=== PATIENT | female | born 1960 | race Caucasian/White ===

== ENCOUNTER 2017-02-01 12:07 | Emergency (ER) | payer OTHER ==
[~2017-02-01 12:07] MED LIST: IBUP-1027 PO; SCOP1PAT TD
[2017-02-01 13:06] VITALS: BP 136/82
--- NOTE | 2017-02-01 14:22 | PHYS DOC ---
Past Medical History Past Medical History: GERD, High Cholesterol, Hypertension Additional Past Medical Histor: GASTROPARESIS, Past Surgical History: Appendectomy, Hysterectomy, Tonsillectomy Additional Past Surgical Histo: G-TUBE,HERNIA Alcohol Use: None Drug Use: None Adult General Chief Complaint Chief Complaint: GI PROBLEM HPI HPI Patient is a 56 year old female who presents with complaint of loss of G-tube. Patient states that her G-tube came out at approximately 11:00 this morning. Patient states that she had her G-tube placed proximate 6 months ago for treatment of gastroparesis. Patient states that she is currently on oral intake and is not having any abdominal pain or nausea. Patient states that she was scheduled to have the tube replaced in 2 days prior to her tube coming out spontaneously. The patient came to the emergency department for evaluation and to see if the G-tube could be replaced. Review of Systems Review of Systems Constitutional: Denies fever or chills [] Eyes: Denies change in visual acuity, redness, or eye pain [] HENT: Denies nasal congestion or sore throat [] Respiratory: Denies cough or shortness of breath [] Cardiovascular: No additional information not addressed in HPI [] GI: Loss of G-tube, Denies abdominal pain, nausea, vomiting, bloody stools or diarrhea [] : Denies dysuria or hematuria [] Musculoskeletal: Denies back pain or joint pain [] Integument: Denies rash or skin lesions [] Neurologic: Denies headache, focal weakness or sensory changes [] Allergies Allergies Allergies Coded Allergies Type Severity Reaction Last Updated Verified benzocaine Allergy Severe Anaphylaxis 06/19/16 Yes morphine Allergy Severe AGGITATION 02/01/17 Yes Sulfa (Sulfonamide Antibiotics) Allergy Intermediate Rash 06/19/16 Yes butorphanol Adverse Reaction Mild Nausea and Vomiting 06/19/16 Yes naproxen Adverse Reaction Mild Anxiety 06/19/16 Yes Physical Exam Physical Exam Constitutional: Well developed, well nourished, no acute distress, non-toxic appearance. [] HENT: Normocephalic, atraumatic, bilateral external ears normal, oropharynx moist, no oral exudates, nose normal. [] Eyes: PERRLA, EOMI, conjunctiva normal, no discharge. [] Neck: Normal range of motion, no tenderness, supple, no stridor. [] Cardiovascular:Heart rate regular rhythm, no murmur [] Lungs & Thorax: Bilateral breath sounds clear to auscultation [] Abdomen: Left upper quadrant gastrostomy, Bowel sounds normal, soft, no tenderness, no masses, no pulsatile masses. [] Skin: Warm, dry, no erythema, no rash. [] Back: No tenderness, no CVA tenderness. [] Extremities: No tenderness, no cyanosis, no clubbing, ROM intact, no edema. [] Neurologic: Alert and oriented X 3, normal motor function, normal sensory function, no focal deficits noted. [] Current Patient Data Vital Signs Vital Signs Date Time Temp Pulse Resp B/P Pulse Ox O2 Delivery O2 Flow Rate FiO2 02/01/17 13:06 98.3 75 18 136/82 97 Room Air 98.3 EKG EKG Not performed [] Radiology/Procedures Radiology/Procedures Not performed [] Course & Med Decision Making Course & Med Decision Making Pertinent Labs and Imaging studies reviewed. (See chart for details) Placement of gastrostomy tube was attempted as outlined in the procedure note without successful replacement. The patient is not G-tube dependent for feeding. The patient is scheduled to have G-tube replacement in 2 days. I spoke with patient's model technician, Dr. Dela Cruz, and patient's general surgeon, Dr. Luna, who both agreed that the patient would be discharged home on clear liquid diet and have her G-tube replaced in 2 days as scheduled. Advised patient to return emergency department for any worsening symptoms. Patient voiced understanding and in agreement with treatment plan. Dragon Disclaimer Dragon Disclaimer This electronic medical record was generated, in whole or in part, using a voice recognition dictation system. Gastrostomy Tube Replacement Indication: Loss of previous G-tube Procedure: The patient was placed in the supine position and the patient's gastric tube was attempted to be replaced. The stoma tract cause significant resistance insertion of a 20 Scottish G-tube. After multiple attempts placement was aborted. The stoma site was dressed with clean gauze. The patient tolerated the procedure without difficulty. Complications: Unsuccessful placement of G-tube. Departure Departure Impression: Primary Impression: PEG tube malfunction Disposition: HOME, SELF-CARE Condition: STABLE Referrals: JAYNE WILSON (PCP) Additional Instructions: We were unable to replace your G-tube at your visit today. I have consult at your model technician, Dr. Dela Cruz, and her general surgeon, Dr. Luna, who both agree that at this time we cover the stoma site with gauze and follow-up in 2 days with your previously scheduled G-tube placement procedure. Continue with a liquid diet at this time. Return to the emergency department for any worsening symptoms including pain, or the development of fever, vomiting, or any other worrisome symptoms. LEXX SOARES MD Feb 01, 2017 14:22
== END 2017-02-01 14:27 | disposition home or self-care (01) ==
LOC: ER 12:07
DX: K94.29 Other complications of gastrostomy (principal); E78.00 Pure hypercholesterolemia, unspecified; I10 Essential (primary) hypertension; K21.9 Gastro-esophageal reflux disease without esophagitis; Z90.710 Acquired absence of both cervix and uterus; Z88.2 Allergy status to sulfonamides; Z88.5 Allergy status to narcotic agent; Z88.8 Allergy status to other drugs, medicaments and biological substances
CPT/HCPCS: 43760; 99284-25

== ENCOUNTER 2017-02-03 09:05 | Outpatient (CLI) | payer OTHER ==
[~2017-02-03] VITALS: Ht 157.5 cm; Wt 53.5 kg
[~2017-02-03 09:05] MED LIST changes: -IV RINGERS,LACTATED 1000ML 1,000 ML IV SCH
[2017-02-03 09:24] LABS: BASO # 0.1 x10^3/uL (0.0-0.2); BASO % 1 % (0-3); EOS % 4 % (0-3); HEMATOCRIT 47.8 % (36.0-47.0); HEMOGLOBIN 15.7 g/dL (12.0-15.5); LYMPH # 2.9 x10^3/uL (1.0-4.8); LYMPH % 30 % (24-48); MEAN CORPUSCULAR HEMOGLOBIN 31 pg (25-35); MEAN CORPUSCULAR HGB CONC 33 g/dL (31-37); MEAN CORPUSCULAR VOLUME 94 fL (79-100); MONO % 8 % (0-9); NEUT % 57 % (31-73); PLATELET COUNT 262 x10^3/uL (140-400); RED CELL DISTRIBUTION WIDTH 13.6 % (11.5-14.5); WHITE BLOOD COUNT 9.7 x10^3/uL (4.0-11.0)
[2017-02-03 09:27] LABS: INR 0.9 (0.8-1.1); PROTHROMBIN TIME PATIENT 11.7 SEC (11.7-14.0)
[2017-02-03 09:35] LABS: CALCIUM 9.3 mg/dL (8.5-10.1); CREATININE 0.8 mg/dL (0.6-1.0); GFR 73.9; POTASSIUM 4.2 mmol/L (3.5-5.1)
[2017-02-03] MEDS ORDERED: PROPOFOL 20 ML IV ONE (09:56)
[2017-02-03] MEDS ORDERED: MIDAZOLAM HCL 2 MG/2 ML VIAL. ONE (09:56)
[2017-02-03] MEDS ORDERED: LIDOCAINE 2% 100 MG/5 ML DISP.SYRIN. ONE (09:56)
[2017-02-03 10:42] VITALS: BP 132/81
[2017-02-03] MEDS ORDERED: IOHEXOL 300 MG/ML 50 ML VIAL. ONE (10:51)
[2017-02-03] MEDS ORDERED: LIDOCAINE 1% / SOD BICARB 8.4% 20 ML VIAL. IJ ONE (10:51)
[2017-02-03] MEDS ORDERED: IOHEXOL 300 MG/ML 50 ML VIAL. INT CAT ONE (11:35)
[2017-02-03 12:38] VITALS: BP 136/67
--- NOTE | 2017-02-03 16:01 | RAD ---
Fluoroscopy guided replacement of gastrostomy tube Indication: 56-year-old female with gastroparesis. Her indwelling gastrostomy tube was inadvertently pulled out. Fluoroscopy guided G-tube replacement has been requested by general surgery. Fluoroscopy time: 2.5 minutes. 2 fluoroscopic spot images were obtained. Kerma-area Product: 5 Gycm2 Contrast material: 20 cc Omnipaque 300 Anesthesia: Mac anesthesia was provided by the department of anesthesiology. Sterility: All elements of maximal sterile barrier technique were utilized, including cap, mask, sterile gown, sterile gloves, large sterile sheet, appropriate hand hygiene, and 2% chlorhexidine for cutaneous antisepsis. Procedure: Informed consent was obtained from the patient. She was placed supine on the angiography table. Using aseptic technique and fluoroscopic guidance, a small 5 Argentine dilator was successfully advanced over a Glidewire through the patient's pre-existing gastrostomy tube tract into gastric lumen. Satisfactory intraluminal position of the dilator was confirmed with a contrast injection and a fluoroscopic spot image. The dilator was then removed over an Amplatz wire. A 20 Argentine ALVA gastrostomy tube was then successfully advanced over the Amplatz wire into gastric lumen. Satisfactory intraluminal position of the G-tube was confirmed with contrast injection and a fluoroscopic spot image. The retention balloon was inflated with 7 cc of sterile water. A sterile dressing was applied. Impression: Successful, uneventful fluoroscopy guided gastrostomy tube replacement, as described.
== END 2017-02-03 12:53 | disposition home or self-care (01) ==
LOC: INTRAD 09:05
PROVIDERS: ATTEND Surgery
DX: Z43.1 Encounter for attention to gastrostomy (principal); J44.9 Chronic obstructive pulmonary disease, unspecified; I10 Essential (primary) hypertension; K21.9 Gastro-esophageal reflux disease without esophagitis; F41.9 Anxiety disorder, unspecified; F32.9 Major depressive disorder, single episode, unspecified; Z72.89 Other problems related to lifestyle; Z90.710 Acquired absence of both cervix and uterus; Z79.01 Long term (current) use of anticoagulants
CPT/HCPCS: 36415; 49450; 80048; 85027; 85610; C1769; C1894; J2250; J2704; Q9967

== ENCOUNTER → 2017-02-03 | Day surgery (SDC) | payer MEDICAID ==
[2017-02-01 13:06] VITALS: BP 136/82
[~2017-02-03] MED LIST changes: +IV RINGERS,LACTATED 1000ML 1,000 ML IV SCH
--- NOTE | 2017-02-03 11:52 | PDOC1 ---
History and Physical Date of Procedure Date of Admission 02/03/17 Procedure Procedure Fluoro guided G-tube replacement Indication Indication 56 YO female with gastroparesis---G tube inadvertently pulled out Past Medical History Past Medical History See Nursing Pre Procedure PMH Past Surgical History Past Surgical History See Nursing Pre procedure PSH Current Medications Current Medications Current Medications Lactated Ringer's (Iv Lactated Ringers) 1,000 ml @ 50 mls/hr Q20H IV ; Start at 13:00; Stop 02/03/17 at 09:12; Status DC Active Scripts Active Transderm-Scop (Scopolamine) 1 Each Patch.td72 1 Patch TD Q3DAYS Allergies Allergies: Coded Allergies: benzocaine (Verified Allergy, Severe, Anaphylaxis, 06/19/16) Per pt maggie/derivities cause throat swelling happened when pt had surgery with difficulty removing tube, said it is something in anesthesia. morphine (Verified Allergy, Severe, AGGITATION, 02/01/17) Sulfa (Sulfonamide Antibiotics) (Verified Allergy, Intermediate, Rash, ) butorphanol (Verified Adverse Reaction, Mild, Nausea and Vomiting, 06/19/16 ) "Violent vomitting" per pt. naproxen (Verified Adverse Reaction, Mild, Anxiety, 06/19/16) "Jittery" per pt. Physical Exam Lungs: Clear to auscultation Heart: Regular rate Psych/Mental Status: Mental status NL Assessment Assessment 56 YO female with gastroparesis---G-tube inadvertently pulled out Problems: Plan Plan Fluoro guided G-tube replacement UNA JARA MD Feb 03, 2017 11:52
--- NOTE | 2017-02-03 11:55 | PDOC ---
Exam Audio Visual Project Manager Audio Visual Project Manager Constantino [employer] Manager [employer] Manager F Ndumbu Pre-Procedure Diagnosis Pre-Procedure Diagnosis 56 YO female with gastroparesis---G-tube inadvertently pulled out Post-Procedure Diagnosis Post-Procedure Diagnosis Same Procedure Performed Procedure Performed Fluoro guided G-tube replacement Type of Anesthesia Type of Anesthesia MAC by anesthesia Estimated Blood Loss EBL: Trace Drain/Tubes Drains/Tubes 20F ALVA G-tube successfully inserted thru pre-existing tract Condition of Patient Condition of Patient Stable. No apparent complication. Disposition Disposition From IR to PACU, then discharge post recovery, if no problems. F/u with Dr Luna. OK to use G-tube. Full report to follow. UNA JARA MD Feb 03, 2017 11:55
== END | disposition home or self-care (01) ==
LOC: SURG 08:23
PROVIDERS: ATTEND Radiology Vascular & Interventional Radiology
DX: K94.23 Gastrostomy malfunction (principal); K31.84 Gastroparesis; J44.9 Chronic obstructive pulmonary disease, unspecified; I10 Essential (primary) hypertension; K21.9 Gastro-esophageal reflux disease without esophagitis; F41.9 Anxiety disorder, unspecified; F32.9 Major depressive disorder, single episode, unspecified; Z72.89 Other problems related to lifestyle
CPT/HCPCS: 36415; 49450

== ENCOUNTER 2018-02-02 09:09 | Inpatient (IN) | payer OTHER ==
[2018-02-02 09:45] LABS: ADD MAN DIFF? NO
[2018-02-02] MEDS: ONDANSETRON PF 4 MG/2 ML VIAL. IV ×2 (09:48→11:14)
[2018-02-02 09:49] LABS: BASO # 0.1 x10^3/uL (0.0-0.2); BASO % 1 % (0-3); EOS % 0 % (0-3); HEMATOCRIT 53.6 % (36.0-47.0); HEMOGLOBIN 18.1 g/dL (12.0-15.5); LYMPH # 1.8 x10^3/uL (1.0-4.8); LYMPH % 13 % (24-48); MEAN CORPUSCULAR HEMOGLOBIN 31 pg (25-35); MEAN CORPUSCULAR HGB CONC 34 g/dL (31-37); MEAN CORPUSCULAR VOLUME 92 fL (79-100); MONO # 0.8 x10^3/uL (0.0-1.1); MONO % 6 % (0-9); NEUT # 10.5 x10^3uL (1.8-7.7); NEUT % 80 % (31-73); PLATELET COUNT 253 x10^3/uL (140-400); RED BLOOD COUNT 5.83 x10^6/uL (3.50-5.40); RED CELL DISTRIBUTION WIDTH 15.5 % (11.5-14.5); WHITE BLOOD COUNT 13.2 x10^3/uL (4.0-11.0)
[2018-02-02] MEDS: IV NORMAL SALINE 1000ML BAG 1,000 ML IV ×3 (09:53→16:44)
[2018-02-02 10:04] LABS: ANION GAP 17 (6-14); BLOOD UREA NITROGEN 26 mg/dL (7-20); BUN/CREATININE RATIO 22 (6-20); CALCIUM 10.6 mg/dL (8.5-10.1); CARBON DIOXIDE 22 mmol/L (21-32); CHLORIDE 103 mmol/L (98-107); CREATININE 1.2 mg/dL (0.6-1.0); GFR 46.1; GLUCOSE 164 mg/dL (70-99); POTASSIUM 3.6 mmol/L (3.5-5.1); SODIUM 142 mmol/L (136-145)
[2018-02-02 10:10] LABS: ALBUMIN 4.1 g/dL (3.4-5.0); ALBUMIN/GLOBULIN RATIO 0.9 (1.0-1.7); ALK PHOS 79 U/L (46-116); ALT (SGPT) 25 U/L (14-59); AST (SGOT) 24 U/L (15-37); TOTAL BILIRUBIN 2.2 mg/dL (0.2-1.0); TOTAL PROTEIN 8.8 g/dL (6.4-8.2)
[2018-02-02] MEDS: HALOPERIDOL LACTATE 5 MG/ML VIAL. IVP ×2 (11:07→12:14)
[2018-02-02] MEDS ORDERED: ONDANSETRON PF 4 MG/2 ML VIAL. IV (11:15)
[2018-02-02] MEDS: hydrALAZINE 20 MG/ML VIAL. IVP (11:44)
[2018-02-02 11:45] LABS: BILIRUBIN,URINE SMALL (NEG); CLARITY,URINE TURBID; COLOR,URINE ORANGE; GLUCOSE,URINE NEGATIVE (NEG); NITRITE,URINE POSITIVE (NEG); PH,URINE 5.5; PROTEIN,URINE 30 mg/dL (NEG-TRACE)
[2018-02-02 12:00] LABS: AMORPHOUS SEDIMENT,UR PRESENT /HPF; BACTERIA,URINE 0 /HPF (0-FEW); RBC,URINE 0 /HPF (0-2); WBC,URINE 0 /HPF (0-4)
[2018-02-02] MEDS ORDERED: DOCUSATE SODIUM 100 MG CAPSULE. PO (14:15)
[2018-02-02] MEDS ORDERED: ACETAMINOPHEN 325 MG TABLET. PO (14:15)
[2018-02-02] MEDS: PANTOPRAZOLE IV PUSH 40 MG VIAL. IVP (16:08)
[2018-02-02] MEDS: ENOXAPARIN 40 MG/0.4 ML SYRINGE. SQ (16:08)
[2018-02-02] MEDS: METOCLOPRAMIDE HCL 10 MG/2 ML VIAL. IV (16:08)
[2018-02-02] MEDS ORDERED: IOHEXOL 240 MG/ML 50ML VIAL. PO (17:15)
[2018-02-02] MEDS ORDERED: CONTRAST GIVEN MC (17:15)
[2018-02-02] MEDS: IOHEXOL 240 MG/ML 50ML VIAL. IJ (17:25)
[2018-02-02] MEDS ORDERED: diphenhydrAMINE HCL 25 MG CAPSULE PO (17:30)
[2018-02-02 17:40] LABS: INR 0.9 (0.8-1.1)
[2018-02-03] MEDS: IV NORMAL SALINE 1000ML BAG 1,000 ML IV ×3 (01:00→20:50)
[2018-02-03 06:09] LABS: ADD MAN DIFF? NO
[2018-02-03 06:23] LABS: BASO # 0.1 x10^3/uL (0.0-0.2); BASO % 1 % (0-3); EOS % 0 % (0-3); HEMATOCRIT 42.1 % (36.0-47.0); LYMPH # 3.3 x10^3/uL (1.0-4.8); LYMPH % 30 % (24-48); MEAN CORPUSCULAR HEMOGLOBIN 31 pg (25-35); MEAN CORPUSCULAR HGB CONC 33 g/dL (31-37); MEAN CORPUSCULAR VOLUME 93 fL (79-100); MONO % 9 % (0-9); NEUT # 6.8 x10^3uL (1.8-7.7); NEUT % 61 % (31-73); PLATELET COUNT 207 x10^3/uL (140-400); RED BLOOD COUNT 4.53 x10^6/uL (3.50-5.40); RED CELL DISTRIBUTION WIDTH 15.4 % (11.5-14.5); WHITE BLOOD COUNT 11.2 x10^3/uL (4.0-11.0)
[2018-02-03 06:42] LABS: ANION GAP 12 (6-14); BLOOD UREA NITROGEN 25 mg/dL (7-20); CALCIUM 8.9 mg/dL (8.5-10.1); CARBON DIOXIDE 25 mmol/L (21-32); CHLORIDE 109 mmol/L (98-107); CREATININE 0.9 mg/dL (0.6-1.0); GFR 64.3; GLUCOSE 89 mg/dL (70-99); SODIUM 146 mmol/L (136-145)
[2018-02-03] MEDS: PANTOPRAZOLE IV PUSH 40 MG VIAL. IVP (08:46)
[2018-02-03] MEDS: POLYETHYLENE GLYCOL 3350 17 GM PACKET. PO (10:00)
[2018-02-03] MEDS: PANTOPRAZOLE 40 MG TABLET.DR. PO (11:56)
[2018-02-03] MEDS: SUCRALFATE 1 GM TABLET. PO ×3 (11:56→20:51)
[2018-02-03] MEDS ORDERED: LIDOCAINE WITH 8.4% SOD BICARB 3 ML DISP.SYRIN. (13:57)
[2018-02-03] MEDS ORDERED: IOHEXOL 300 MG/ML 100ML VIAL. (13:57)
[2018-02-03] MEDS: ENOXAPARIN 40 MG/0.4 ML SYRINGE. SQ (15:00)
[2018-02-04] MEDS: IV NORMAL SALINE 1000ML BAG 1,000 ML IV ×2 (06:18→16:52)
[2018-02-04] MEDS: SUCRALFATE 1 GM TABLET. PO ×4 (07:30→22:07)
[2018-02-04] MEDS ORDERED: IV RINGERS,LACTATED 1000ML 1,000 ML IV (08:30)
[2018-02-04] MEDS: POLYETHYLENE GLYCOL 3350 17 GM PACKET. PO (09:00)
[2018-02-04] MEDS ORDERED: fentaNYL PF VIAL 100 MCG/2 ML VIAL (12:40)
[2018-02-04] MEDS ORDERED: MIDAZOLAM HCL/PF 2 MG/2 ML VIAL. (12:40)
[2018-02-04] MEDS ORDERED: KETAMINE HCL 500 MG/10 ML VIAL. (12:40)
[2018-02-04] MEDS ORDERED: IOHEXOL 240 MG/ML 50ML VIAL. (13:10)
[2018-02-04] MEDS ORDERED: LIDOCAINE WITH 8.4% SOD BICARB 3 ML DISP.SYRIN. (13:11)
[2018-02-04] MEDS ORDERED: PROCHLORPERAZINE 10 MG/2 ML VIAL. (13:34)
[2018-02-04] MEDS ORDERED: CONTRAST GIVEN MC (13:45)
[2018-02-04] MEDS: IOHEXOL 240 MG/ML 50ML VIAL. IJ (13:45)
[2018-02-04] MEDS ORDERED: PROPOFOL 20 ML IV (13:46)
[2018-02-04] MEDS ORDERED: 0.9 % SODIUM CHLORIDE 50 ML VIAL. IJ (13:46)
[2018-02-04] MEDS: PANTOPRAZOLE 40 MG TABLET.DR. PO (16:03)
[2018-02-04] MEDS: ENOXAPARIN 40 MG/0.4 ML SYRINGE. SQ (16:28)
[2018-02-04] MEDS: ONDANSETRON PF 4 MG/2 ML VIAL. IV (18:07)
[2018-02-04] MEDS: hydrALAZINE 20 MG/ML VIAL. IVP ×2 (19:19→23:30)
[2018-02-04] MEDS: PROMETHAZINE 12.5 MG in IV DEXTROSE 5% 50 ML IV (20:28)
[2018-02-05] MEDS: ONDANSETRON PF 4 MG/2 ML VIAL. IV (00:07)
[2018-02-05] MEDS: IV NORMAL SALINE 1000ML BAG 1,000 ML IV ×3 (00:07→20:08)
[2018-02-05] MEDS: PANTOPRAZOLE 40 MG TABLET.DR. PO (07:48)
[2018-02-05] MEDS: SUCRALFATE 1 GM TABLET. PO ×4 (07:48→20:06)
[2018-02-05] MEDS: POLYETHYLENE GLYCOL 3350 17 GM PACKET. PO (07:52)
[2018-02-05] MEDS ORDERED: LIDOCAINE 2% 100 MG/5 ML SYRINGE. (08:00)
[2018-02-05] MEDS: hydrALAZINE 20 MG/ML VIAL. IVP (14:59)
[2018-02-05] MEDS: ENOXAPARIN 40 MG/0.4 ML SYRINGE. SQ (16:41)
[2018-02-05] MEDS: ACETAMINOPHEN 500 MG TABLET PO (20:06)
[2018-02-06] MEDS: SUCRALFATE 1 GM TABLET. PO (07:52)
[2018-02-06] MEDS: PANTOPRAZOLE 40 MG TABLET.DR. PO (07:52)
[2018-02-06] MEDS: POLYETHYLENE GLYCOL 3350 17 GM PACKET. PO (08:00)
[2018-02-06] MEDS: IV NORMAL SALINE 1000ML BAG 1,000 ML IV (08:00)
== END 2018-02-06 11:20 | disposition home or self-care (01) | DRG 392 ==
LOC: ER 09:09 → 5 NORTH 10:38
PROC: 0D20X0Z Change Drainage Device in Upper Intestinal Tract, External Approach (ICD-10-PCS; principal; 2018-02-04)
DX: K31.84 Gastroparesis (principal); K94.23 Gastrostomy malfunction; E78.5 Hyperlipidemia, unspecified; I16.0 Hypertensive urgency; K21.9 Gastro-esophageal reflux disease without esophagitis; F17.210 Nicotine dependence, cigarettes, uncomplicated; H91.92 Unspecified hearing loss, left ear; I10 Essential (primary) hypertension; J44.9 Chronic obstructive pulmonary disease, unspecified; K44.9 Diaphragmatic hernia without obstruction or gangrene; K57.90 Diverticulosis of intestine, part unspecified, without perforation or abscess without bleeding; X58.XXXA Exposure to other specified factors, initial encounter; Y93.E1 Activity, personal bathing and showering; Z82.49 Family history of ischemic heart disease and other diseases of the circulatory system; Z90.49 Acquired absence of other specified parts of digestive tract; Z90.710 Acquired absence of both cervix and uterus
CPT/HCPCS: 36415; 49450; 74018; 80048; 80053; 81001; 85025; 85610; 87086; 96361; 96374; 96375; 96376; 99285; 99285-25; C1769; C9113; J0360; J1630; J1650; J2250; J2405; J2550; J2704; J2765; J3010; J3490; J7030; Q9966

== ENCOUNTER → 2018-04-08 | Outpatient (CLI) | payer OTHER ==
[2018-04-08] MEDS: BARIUM SULFATE 60% 355 ML SUSP PO (09:12)
== END | disposition home or self-care (01) ==
LOC: RAD 08:27
DX: K31.84 Gastroparesis (principal)
CPT/HCPCS: 74245

== ENCOUNTER → 2019-02-06 | Outpatient (CLI) | payer MEDICARE, OTHER ==
[~2019-02-06] VITALS: Ht 154.9 cm; Wt 45.4 kg
[~2019-02-06] MED LIST changes: +ATOR10TA60 PO; +BACITRACIN 50,000 UNIT in IV NORMAL SALINE 1000ML BAG 1,000 ML IRR ONE; +CONTRAST GIVEN. MC PRN; +ESTR30CR VG; +HYDR-2761 PO; +IOHEXOL 240 MG/ML 50ML VIAL. IJ ONE; +IOHEXOL 240 MG/ML 50ML VIAL. ONE; +IV RINGERS,LACTATED 1000ML 1,000 ML IV SCH; +LIDOCAINE 1% PF 2 ML VIAL. ID PRN; +LIDOCAINE 2% PF 5 ML VIAL. ONE; +LIDOCAINE WITH 8.4% SOD BICARB 3 ML DISP.SYRIN. ONE; +LUBI8CAP4 PO; +MAGN400T3 PO; +ONDA4TAB11 PO; +ONDANSETRON PF 4 MG/2 ML VIAL. IV PRN; +PANT20TA2 PO; +POLY17PO29 PO; +PROCHLORPERAZINE 10 MG/2 ML VIAL. IV PRN; +PROPOFOL 20 ML IV ONE; +PROPOFOL 50 ML IV ONE; -SCOP1PAT TD; +SCOP1PAT11 TD; +SCOPOLAMINE 1.5MG PATCH. TD SCH; +SUCR1TAB PO; +ceFAZolin SODIUM 3 GM in IV DEXTROSE 5% 100ML 100 ML IV PRN; +fentaNYL PF VIAL 100 MCG/2 ML VIAL IV PRN
[2019-02-06 09:00] VITALS: BP 116/75
--- NOTE | 2019-02-06 11:47 | PDOC ---
BRIEF OPERATIVE NOTE Pre-Op Diagnosis gastroparesis Post-Op Diagnosis same Procedure Performed G tube and J tube exchanges Surgeon Julian Anesthesia Type: MAC Findings 20F G tube and 20F J tube (modified to 10cm internal length) exchange Complications No immediate ROXY REYES MD Feb 06, 2019 11:47
[2019-02-06 12:00] VITALS: BP 124/77
--- NOTE | 2019-02-07 08:54 | RAD ---
Procedure: Gastrostomy tube replacement and jejunostomy tube replacement Clinical Indication: 58-year-old with gastroparesis, requiring routine gastrostomy and jejunostomy tube exchange. Sedation: This procedure was performed with Mac anesthesia administered by the anesthesia department. Antibiotics: None Exposure: Kerma-Area Product: 2 Gycm2 Sterility: All elements of maximal sterile barrier technique including the use of a cap, mask, sterile gown, sterile gloves, large sterile sheet, appropriate hand hygiene, and 2% chlorhexidine for cutaneous antisepsis (or acceptable alternative antiseptic per current guidelines) were followed for this procedure. If ultrasound guidance was utilized, sterile ultrasound techniques were followed including use of a sterile probe cover. Consent: The procedure was explained in its entirety to the patient or the patients designated retail representative by a member of the treatment team, including a discussion of the risks, benefits and commonly accepted alternatives to the procedure, as well as the expected consequences of no therapy whatsoever. Discussion of the risks included, but was not limited to, those that are most frequent and those that are rare but possibly severe or life-threatening, as well as the possibility of unforeseen complications. Technique and Findings: Following informed consent, the patient was prepped and draped in usual sterile fashion. Due to lidocaine allergy, no local anesthetic was administered. The gastrostomy tube was assessed with contrast injection and found to be intraluminal. The balloon was deflated and the tube was removed over a stiff Glidewire. A new 20 Anguillan gastrostomy tube was advanced over the Glidewire and positioned within the gastric lumen. The balloon was inflated and the tube was pulled taut against the abdominal wall. The retention disc was slid into place. Contrast injection confirmed good position and function of this gastrostomy tube. The same process was then repeated with regard to the jejunostomy tube. The jejunostomy tube was cut to 10 cm to conform to the preexisting short jejunostomy tube. Once again contrast injection of the replaced tube revealed good position and function. The balloon of the jejunostomy tube was inflated to only 4 cc. Complications: No immediate Impression: 1. Fluoroscopic guided removal and replacement of a gastrostomy tube as described. 2. Fluoroscopic guided removal and replacement of jejunostomy tube as described.
== END | disposition home or self-care (01) ==
LOC: INTRAD 08:44
PROVIDERS: ATTEND Surgery
DX: K31.84 Gastroparesis (principal); Z88.2 Allergy status to sulfonamides; Z88.5 Allergy status to narcotic agent; Z88.6 Allergy status to analgesic agent; Z88.8 Allergy status to other drugs, medicaments and biological substances; Z98.890 Other specified postprocedural states; Z90.710 Acquired absence of both cervix and uterus; Z79.01 Long term (current) use of anticoagulants; Z79.899 Other long term (current) drug therapy
CPT/HCPCS: 36415; 49450; 49451; 85610; 85730; C1769; J2704; Q9966; B4087; J2001

== ENCOUNTER → 2019-08-23 | Outpatient (CLI) | payer MEDICARE, MEDICAID ==
[~2019-08-23] VITALS: Ht 154.9 cm; Wt 40.8 kg
[~2019-08-23] MED LIST changes: -BACITRACIN 50,000 UNIT in IV NORMAL SALINE 1000ML BAG 1,000 ML IRR ONE; -IV RINGERS,LACTATED 1000ML 1,000 ML IV SCH; -LIDOCAINE 1% PF 2 ML VIAL. ID PRN; -LIDOCAINE 2% PF 5 ML VIAL. ONE; -LIDOCAINE WITH 8.4% SOD BICARB 3 ML DISP.SYRIN. ONE; -MAGN400T3 PO; +MAGN400T5 PO; -ONDANSETRON PF 4 MG/2 ML VIAL. IV PRN; -PROCHLORPERAZINE 10 MG/2 ML VIAL. IV PRN; -PROPOFOL 20 ML IV ONE; -PROPOFOL 50 ML IV ONE; -SCOPOLAMINE 1.5MG PATCH. TD SCH; -ceFAZolin SODIUM 3 GM in IV DEXTROSE 5% 100ML 100 ML IV PRN; -fentaNYL PF VIAL 100 MCG/2 ML VIAL IV PRN
[2019-08-23 10:32] VITALS: BP 105/69
[2019-08-23 11:55] VITALS: BP 122/84
--- NOTE | 2019-08-24 12:59 | RAD ---
Procedure: Gastrostomy tube replacement and jejunostomy tube replacement Clinical Indication: 58-year-old with gastroparesis, requiring routine gastrostomy and jejunostomy tube exchange. Sedation: This procedure was performed with Mac anesthesia administered by theanesthesia department. DOS 3 time: 4.6 minutes Dose area product: 7 Gycm2 Sterility: All elements of maximal sterile barrier technique including the use of a cap, mask, sterile gown, sterile gloves, large sterile sheet, appropriate hand hygiene, and 2% chlorhexidine for cutaneous antisepsis (or acceptable alternative antiseptic per current guidelines) were followed for this procedure. If ultrasound guidance was utilized, sterile ultrasound techniques were followed including use of a sterile probe cover. Consent: The procedure was explained in its entirety to the patient or the patients designated dairy supplies sales representative by a member of the treatment team, including a discussion of the risks, benefits and commonly accepted alternatives to the procedure, as well as the expected consequences of no therapy whatsoever. Discussion of the risks included, but was not limited to, those that are most frequent and those that are rare but possibly severe or life-threatening, as well as the possibility of unforeseen complications. Technique and Findings: Following informed consent, the patient was prepped and draped in usual sterile fashion. Due to lidocaine allergy, no local anesthetic was administered. The gastrostomy tube was assessed with contrast injection and found to be intraluminal. The balloon was deflated and the tube was removed over a Glidewire. A new 20 Belarusian gastrostomy tube was advanced over the Glidewire and positioned within the gastric lumen. The balloon was inflated and the tube was pulled taut against the abdominal wall. The retention disc was slid into place. Contrast injection confirmed good position and function of this gastrostomy tube. The same process was then repeated with regard to the jejunostomy tube. The jejunostomy tube was cut to 10 cm to conform to the preexisting short jejunostomy tube. Once again contrast injection of the replaced tube revealed good position and function. The balloon of the jejunostomy tube was inflated to only 7 cc. Complications: No immediate Impression: 1. Fluoroscopic guided removal and replacement of a gastrostomy tube as described. 2. Fluoroscopic guided removal and replacement of jejunostomy tube as described.
== END ==
LOC: INTRAD 09:58
PROVIDERS: ATTEND Surgery
DX: Z46.59 Encounter for fitting and adjustment of other gastrointestinal appliance and device (principal); K31.84 Gastroparesis
CPT/HCPCS: 49451; B4087; C1769; J2370; J2704; J2710

== ENCOUNTER → 2020-02-02 | Outpatient (CLI) | payer MEDICARE, MEDICAID ==
[~2020-02-02] VITALS: Ht 154.9 cm; Wt 38.6 kg
[~2020-02-02] MED LIST changes: +ESCITALOPRAM OX10 MG PO; +IV RINGERS,LACTATED 1000ML 1,000 ML IV SCH; +OMEP40CA45 PO; +ONDA-84 PO; -ONDA4TAB11 PO; +ONDANSETRON PF 4 MG/2 ML VIAL. IV PRN; +PROCHLORPERAZINE 10 MG/2 ML VIAL. IV PRN; +PROPOFOL 0 ML IV ONE; +PROPOFOL 20 ML IV ONE; +PROPOFOL 50 ML IV ONE; +fentaNYL PF VIAL 100 MCG/2 ML VIAL IV PRN
[2020-02-02 12:18] VITALS: BP 125/76
[2020-02-02 13:15] VITALS: BP 148/87
--- NOTE | 2020-02-02 14:44 | RAD ---
Procedure: Gastrostomy tube replacement and jejunostomy tube replacement 02/02/2020 Clinical Indication: 58-year-old with gastroparesis, requiring routine gastrostomy and jejunostomy tube exchange. Sedation: This procedure was performed with Mac anesthesia administered by the anesthesia department. Total fluoroscopy time: 2.3 MIN Dose area product: 3 GYCM2 CONTRAST: 25 ML Sterility: All elements of maximal sterile barrier technique including the use of a cap, mask, sterile gown, sterile gloves, large sterile sheet, appropriate hand hygiene, and 2% chlorhexidine for cutaneous antisepsis (or acceptable alternative antiseptic per current guidelines) were followed for this procedure. If ultrasound guidance was utilized, sterile ultrasound techniques were followed including use of a sterile probe cover. Consent: The procedure was explained in its entirety to the patient or the patients designated registration representative by a member of the treatment team, including a discussion of the risks, benefits and commonly accepted alternatives to the procedure, as well as the expected consequences of no therapy whatsoever. Discussion of the risks included, but was not limited to, those that are most frequent and those that are rare but possibly severe or life-threatening, as well as the possibility of unforeseen complications. Technique and Findings: Following informed consent, the patient was prepped and draped in usual sterile fashion. Due to lidocaine allergy, no local anesthetic was administered. The gastrostomy tube was assessed with contrast injection and found to be intraluminal. The balloon was deflated and the tube was removed over a Glidewire. A new 20 Serbian gastrostomy tube was advanced over the Glidewire and positioned within the gastric lumen. The balloon was inflated and the tube was pulled taut against the abdominal wall. The retention disc was slid into place. Contrast injection confirmed good position and function of this gastrostomy tube. The same process was then repeated with regard to the jejunostomy tube. The jejunostomy tube was to conform to the preexisting short jejunostomy tube. Once again contrast injection of the replaced tube revealed good position and function. The balloon of the jejunostomy tube was inflated to 7 cc. Impression: 1. Fluoroscopic guided removal and replacement of a gastrostomy tube as described. 2. Fluoroscopic guided removal and replacement of jejunostomy tube as described.
== END | disposition home or self-care (01) ==
LOC: SURG 11:16
PROVIDERS: ATTEND Surgery
DX: Z46.59 Encounter for fitting and adjustment of other gastrointestinal appliance and device (principal); K31.84 Gastroparesis
CPT/HCPCS: 49450; 49451; B4087; C1769; J2704; Q9966

== ENCOUNTER → 2020-08-13 | Outpatient (CLI) | payer MEDICARE, MEDICAID ==
[2020-02-02 13:15] VITALS: BP 148/87
[~2020-08-13] MED LIST changes: -CONTRAST GIVEN. MC PRN; -IOHEXOL 240 MG/ML 50ML VIAL. IJ ONE; -IOHEXOL 240 MG/ML 50ML VIAL. ONE; -IV RINGERS,LACTATED 1000ML 1,000 ML IV SCH; -ONDANSETRON PF 4 MG/2 ML VIAL. IV PRN; -PROCHLORPERAZINE 10 MG/2 ML VIAL. IV PRN; -PROPOFOL 0 ML IV ONE; -PROPOFOL 20 ML IV ONE; -PROPOFOL 50 ML IV ONE; -fentaNYL PF VIAL 100 MCG/2 ML VIAL IV PRN
== END | disposition home or self-care (01) ==
LOC: LAB 13:53
PROVIDERS: ATTEND Surgery
DX: Z01.812 Encounter for preprocedural laboratory examination (principal); Z20.828 Contact with and (suspected) exposure to other viral communicable diseases
CPT/HCPCS: U0003-CS

== ENCOUNTER 2020-08-16 10:33 | Outpatient (CLI) | payer MEDICARE, MEDICAID ==
[~2020-08-16] VITALS: Ht 154.9 cm; Wt 33.1 kg
[2020-08-16 11:04] LABS: BASO # 0.1 x10^3/uL (0.0-0.2); BASO % 1 % (0-3); EOS # 0.3 x10^3/uL (0.0-0.7); EOS % 3 % (0-3); HEMATOCRIT 47.3 % (36.0-47.0); LYMPH # 2.9 x10^3/uL (1.0-4.8); LYMPH % 28 % (24-48); MEAN CORPUSCULAR HEMOGLOBIN 32 pg (25-35); MEAN CORPUSCULAR HGB CONC 34 g/dL (31-37); MEAN CORPUSCULAR VOLUME 96 fL (79-100); MONO # 0.7 x10^3/uL (0.0-1.1); MONO % 7 % (0-9); NEUT # 6.3 x10^3/uL (1.8-7.7); NEUT % 62 % (31-73); PLATELET COUNT 270 x10^3/uL (140-400); RED BLOOD COUNT 4.93 x10^6/uL (3.50-5.40); RED CELL DISTRIBUTION WIDTH 14.8 % (11.5-14.5); WHITE BLOOD COUNT 10.2 x10^3/uL (4.0-11.0)
[2020-08-16 11:09] LABS: CALCIUM 9.4 mg/dL (8.5-10.1); CREATININE 0.8 mg/dL (0.6-1.0); GFR 73.2; POTASSIUM 4.3 mmol/L (3.5-5.1)
[2020-08-16 11:10] VITALS: BP 109/66
[2020-08-16 11:14] LABS: PROTHROMBIN TIME PATIENT 12.2 SEC (11.7-14.0)
[2020-08-16] MEDS ORDERED: IOHEXOL 240 MG/ML 50ML VIAL. ONE (12:02)
[2020-08-16] MEDS ORDERED: IOHEXOL 240 MG/ML 50ML VIAL. IJ ONE (12:15)
[2020-08-16 12:44] VITALS: BP 109/72
--- NOTE | 2020-08-16 15:41 | RAD ---
Procedure: Gastrostomy tube replacement and jejunostomy tube replacement 08/16/2020 Clinical Indication: 58-year-old with gastroparesis, requiring routine gastrostomy and jejunostomy tube exchange. Sedation: This procedure was performed with Mac anesthesia administered by the anesthesia department. Total fluoroscopy time:: 1.3 MIN Dose area product: 2 Gycm2 Sterility: All elements of maximal sterile barrier technique including the use of a cap, mask, sterile gown, sterile gloves, large sterile sheet, appropriate hand hygiene, and 2% chlorhexidine for cutaneous antisepsis (or acceptable alternative antiseptic per current guidelines) were followed for this procedure. If ultrasound guidance was utilized, sterile ultrasound techniques were followed including use of a sterile probe cover. Consent: The procedure was explained in its entirety to the patient or the patients designated brand representative by a member of the treatment team, including a discussion of the risks, benefits and commonly accepted alternatives to the procedure, as well as the expected consequences of no therapy whatsoever. Discussion of the risks included, but was not limited to, those that are most frequent and those that are rare but possibly severe or life-threatening, as well as the possibility of unforeseen complications. Technique and Findings: Following informed consent, the patient was prepped and draped in usual sterile fashion. Due to lidocaine allergy, no local anesthetic was administered. The gastrostomy tube was assessed with contrast injection and found to be intraluminal. The balloon was deflated and the tube was removed over a Glidewire. A new 20 Swiss gastrostomy tube was advanced over the Glidewire and positioned within the gastric lumen. The balloon was inflated and the tube was pulled taut against the abdominal wall. The retention disc was slid into place. Contrast injection confirmed good position and function of this gastrostomy tube. The same process was then repeated with regard to the jejunostomy tube. The jejunostomy tube was cut to conform to the preexisting short jejunostomy tube. Once again contrast injection of the replaced tube revealed good position and function. The balloon of the jejunostomy tube was inflated to 7 cc. Complications: No immediate Impression: 1. Fluoroscopic guided removal and replacement of a gastrostomy tube as described. 2. Fluoroscopic guided removal and replacement of jejunostomy tube as described.
== END 2020-08-16 13:48 | disposition home or self-care (01) ==
LOC: INTRAD 10:33
PROVIDERS: ATTEND Physician Assistant
DX: K31.84 Gastroparesis (principal); E78.5 Hyperlipidemia, unspecified; E78.00 Pure hypercholesterolemia, unspecified; K21.9 Gastro-esophageal reflux disease without esophagitis; Z98.890 Other specified postprocedural states; Z79.01 Long term (current) use of anticoagulants; Z88.2 Allergy status to sulfonamides; Z88.8 Allergy status to other drugs, medicaments and biological substances; F17.210 Nicotine dependence, cigarettes, uncomplicated; Z72.89 Other problems related to lifestyle; Z79.899 Other long term (current) drug therapy
CPT/HCPCS: 36415; 49450; 49451; 80048; 85025; 85610; B4087; C1769; Q9966

== ENCOUNTER 2021-03-12 09:50 | Day surgery (SDC) | payer MEDICARE, MEDICAID ==
[~2021-03-12] VITALS: Ht 154.9 cm; Wt 38.6 kg
[~2021-03-12 09:50] MED LIST changes: +IV RINGERS,LACTATED 1000ML 1,000 ML IV SCH; +PROCHLORPERAZINE 10 MG/2 ML VIAL. IVP PRN; +fentaNYL PF VIAL 100 MCG/2 ML VIAL IVP PRN
[2021-03-12 10:29] VITALS: BP 126/75
[2021-03-12] MEDS ORDERED: LIDOCAINE 2% PF 5 ML VIAL. ONE (11:06)
[2021-03-12] MEDS ORDERED: PROPOFOL 10 MG/ML (20ML) VIAL. IV ONE ×2 (11:06→12:49)
[2021-03-12] MEDS ORDERED: CONTRAST GIVEN. MC PRN (11:30)
[2021-03-12] MEDS ORDERED: IOHEXOL 240 MG/ML 50ML VIAL. IJ ONE (11:30)
[2021-03-12 12:20] VITALS: BP 108/67
[2021-03-12] MEDS ORDERED: fentaNYL PF VIAL 100 MCG/2 ML VIAL ONE (12:35)
[2021-03-12] MEDS: fentaNYL PF VIAL 100 MCG/2 ML VIAL IVP PRN ×2 (12:39→12:53)
[2021-03-12 13:10] VITALS: BP 115/75
--- NOTE | 2021-03-19 10:49 | RAD ---
03/14/2021 8:10 AM Procedure: Conversion of a gastrostomy tube to gastrojejunostomy catheter Clinical Indication: Jejunostomy tube recently removed. Discussion: The procedure was explained in its entirety to the patient or the patients designated customer assistance representative by a member of the treatment team, including a discussion of the risks, benefits and commonly accepted alternatives to the procedure, as well as the expected consequences of no therapy whatsoever. Discussion of the risks included, but was not limited to, those that are most frequent and those that are rare but possibly severe or life-threatening, as well as the possibility of unforeseen complications. All elements of maximal sterile barrier technique including the use of a cap, mask, sterile gown, sterile gloves, large sterile sheet, appropriate hand hygiene, and 2% chlorhexidine for cutaneous antisepsis (or acceptable alternative antiseptic per current guidelines) were followed for this procedure. The pre-existing gastrostomy tube was evaluated under fluoroscopy including the administration of contrast and found to be in acceptable position. This tube was removed over a guidewire. The guidewire and catheter were advanced into the and jejunum. Over the wire and new gastrojejunostomy tube was placed, 20 Romansh. Contrast was administered confirming position. The new catheter was secured in place and sterile dressings applied. No immediate complications were identified. Total fluoroscopy time: 15 min Dose area product: 11 Gycm2 Sedation was provided via the anesthesiology department Impression: Conversion of a gastrostomy tube to gastrojejunostomy tube MTDD
== END 2021-03-12 13:40 | disposition home or self-care (01) ==
LOC: SURG 09:50
PROVIDERS: ATTEND Surgery
DX: K31.84 Gastroparesis (principal); I10 Essential (primary) hypertension; E78.00 Pure hypercholesterolemia, unspecified; J44.9 Chronic obstructive pulmonary disease, unspecified; F41.9 Anxiety disorder, unspecified; F32.9 Major depressive disorder, single episode, unspecified; F17.210 Nicotine dependence, cigarettes, uncomplicated; Z93.4 Other artificial openings of gastrointestinal tract status; Z90.710 Acquired absence of both cervix and uterus; Z98.890 Other specified postprocedural states; Z88.0 Allergy status to penicillin; Z88.1 Allergy status to other antibiotic agents; Z88.8 Allergy status to other drugs, medicaments and biological substances; Z88.2 Allergy status to sulfonamides; Z20.822 Contact with and (suspected) exposure to COVID-19
CPT/HCPCS: 49446; 87426; C1769; J2704; J3010; 49452

== ENCOUNTER → 2022-03-13 | Outpatient (CLI) | payer OTHER, MEDICAID ==
[~2022-03-13] VITALS: Ht 157.5 cm; Wt 38.2 kg
[~2022-03-13] MED LIST changes: +HYDROmorphone 2 MG/ML INJ. IVP PRN; +IODIXANOL 320 MG/ML 50ML VIAL. IV ONE; +IODIXANOL 320 MG/ML 50ML VIAL. ONE; +LEXAPRO20 MG PO; +LIDOCAINE 2% PF 5 ML VIAL. ONE; +MAGN400T48 PO; -MAGN400T5 PO; +MORPHINE SULFATE 2 MG/ML INJ. IVP PRN; -OMEP40CA45 PO; +OMEP40CA7 PO; +PROPOFOL 10 MG/ML (20ML) VIAL. IV ONE; -SCOP1PAT11 TD; +SCOP1PAT12 TD; +SCOPOLAMINE 1.5MG PATCH. TD ONE
[2022-03-13 08:48] LABS: BASO # 0.1 x10^3/uL (0.0-0.2); BASO % 1 % (0-3); EOS # 0.3 x10^3/uL (0.0-0.7); EOS % 3 % (0-3); HEMATOCRIT 43.1 % (36.0-47.0); HEMOGLOBIN 14.3 g/dL (12.0-15.5); LYMPH # 2.4 x10^3/uL (1.0-4.8); LYMPH % 28 % (24-48); MEAN CORPUSCULAR HEMOGLOBIN 31 pg (25-35); MEAN CORPUSCULAR HGB CONC 33 g/dL (31-37); MEAN CORPUSCULAR VOLUME 94 fL (79-100); MONO # 0.8 x10^3/uL (0.0-1.1); MONO % 10 % (0-9); NEUT # 5.1 x10^3/uL (1.8-7.7); NEUT % 59 % (31-73); PLATELET COUNT 249 x10^3/uL (140-400); RED BLOOD COUNT 4.61 x10^6/uL (3.50-5.40); RED CELL DISTRIBUTION WIDTH 14.4 % (11.5-14.5); WHITE BLOOD COUNT 8.7 x10^3/uL (4.0-11.0)
[2022-03-13 08:57] LABS: PROTHROMBIN TIME PATIENT 12.2 SEC (11.7-14.0)
[2022-03-13 09:00] LABS: CREATININE 0.7 mg/dL (0.6-1.0); GFR 84.8
[2022-03-13 09:01] VITALS: BP 128/79
[2022-03-13 10:19] VITALS: BP 110/82
--- NOTE | 2022-03-13 12:53 | RAD ---
Fluoroscopically guided exchange of a gastrojejunostomy tube. INDICATION: Routine exchange COMPARISON STUDY: Multiple prior ischemic changes Consent: The procedure was explained in its entirety to the patient or the patients designated repres entative by a member of the treatment team, including a discussion of the risks, benefits and commonl y accepted alternatives to the procedure, as well as the expected consequences of no therapy whatsoev er. Discussion of the risks included, but was not limited to, those that are most frequent and thos e that are rare but possibly severe or life-threatening, as well as the possibility of unforeseen com plications. The anterior abdomen was prepped and draped using sterile barrier technique. Under fluoroscopic lakeisha nce the previously existing 20 Swedish gastrojejunostomy tube was removed over wire and replaced with a new, essentially identical catheter. The catheter was secured in place. Sterile dressings were appl ied. No immediate complications were identified. Total fluoroscopy time: 5.7 minutes Dose area product: 6 [place] centimeter squared Sedation was provided by the anesthesiology department. IMPRESSION: Routine exchange of gastrojejunostomy tube Electronically signed by: Ghulam Marie MD (03/13/2022 12:51 PM) [id number]
== END | disposition home or self-care (01) ==
LOC: INTRAD 08:21
PROVIDERS: ATTEND Surgery
DX: K94.23 Gastrostomy malfunction (principal); I10 Essential (primary) hypertension; J45.909 Unspecified asthma, uncomplicated; K21.9 Gastro-esophageal reflux disease without esophagitis; M19.90 Unspecified osteoarthritis, unspecified site; E11.9 Type 2 diabetes mellitus without complications; F41.9 Anxiety disorder, unspecified; F32.9 Major depressive disorder, single episode, unspecified; Z98.51 Tubal ligation status; Z90.710 Acquired absence of both cervix and uterus; Z90.49 Acquired absence of other specified parts of digestive tract; Z98.890 Other specified postprocedural states; F17.210 Nicotine dependence, cigarettes, uncomplicated; Z79.84 Long term (current) use of oral hypoglycemic drugs; Z79.899 Other long term (current) drug therapy; Z91.041 Radiographic dye allergy status
CPT/HCPCS: 36415; 49452; 80048; 85025; 85610; C1769; J2704; Q9967